=== PATIENT | male | born 1970 | race Two or more races ===

== ENCOUNTER 2024-04-09 13:56 | Emergency (ER) | payer BC ==
[2024-04-09 14:22] VITALS: PULSE 74; RESP 18; TEMP 98.6; BMI 36.9
[2024-04-09] MEDS ORDERED: DEXAMETHASONE SOD PHOSPHATE 10 MG/1 ML VIAL ONE (15:32)
[2024-04-09] MEDS ORDERED: KETOROLAC TROMETHAMINE 30 MG/1 ML VIAL ONE (15:32)
[2024-04-09] MEDS: KETOROLAC TROMETHAMINE 30 MG/1 ML VIAL IM ONE (15:38)
[2024-04-09] MEDS: DEXAMETHASONE SOD PHOSPHATE 10 MG/1 ML VIAL IM ONE (15:38)
[2024-04-09] MEDS: amLODIPine BESYLATE 5 MG TABLET (FP) PO ONE (16:58)
[2024-04-09] MEDS ORDERED: amLODIPine BESYLATE 5 MG TABLET (FP) ONE (16:58)
[2024-04-09 18:43] VITALS: BP 170/105
== END 2024-04-09 18:45 | disposition home or self-care (01) ==
LOC: JER 13:56
PROC: 3E023GC Introduction of Other Therapeutic Substance into Muscle, Percutaneous Approach (ICD-10-PCS; principal; 2024-04-09)
PROC: 3E0133Z Introduction of Anti-inflammatory into Subcutaneous Tissue, Percutaneous Approach (ICD-10-PCS; 2024-04-09)
DX: M54.50 Low back pain, unspecified (principal); I10 Essential (primary) hypertension
CPT/HCPCS: 93005; 93010; 99284-25; J1100